=== PATIENT | male | born 1940 | race African-American/Black ===

== ENCOUNTER 2017-05-15 09:38 | Day surgery (SDC) | payer OTHER ==
[2017-05-15 10:00] VITALS: BMI 28.3
[2017-05-15] MEDS ORDERED: ONDANSETRON 4 MG/2 ML VIAL IVPUSH PRN (10:03)
[2017-05-15] MEDS ORDERED: oxyCODONE HCL 5 MG TABLET PO PRN (10:03)
[2017-05-15] MEDS ORDERED: LACTATED RINGERS SOLUTION 1,000 ML IV SCH (10:15)
[2017-05-15] MEDS ORDERED: ACETAMINOPHEN 1000 MG/100 ML VIAL (NON FORMULARY) IVPB ONE (10:21)
[2017-05-15] MEDS ORDERED: ACETAMINOPHEN INJECTION 100 ML IVPB ONE ×2 (10:39→14:03)
[2017-05-15] MEDS ORDERED: BUPIVACAINE HCL/PF 0.5% (5MG/ML) 10 ML VIAL ONE ×2 (10:49→11:40)
[2017-05-15] MEDS ORDERED: MIDAZOLAM HCL 2 MG/2 ML SINGLE DOSE VIAL ONE ×2 (10:50)
--- NOTE | 2017-05-15 10:56 | HP ---
History & Physical Update - History History: No Change (Pt's H&P without change from office visit 04/30/17.) - Physical Physical: No Change - Assessment Assessment: No Change (reducible right inguinal hernia) - Plan Plan: No Change (right inguinal hernia repair with mesh)
[2017-05-15] MEDS ORDERED: ROCURONIUM BROMIDE 50 MG/5 ML VIAL ONE (11:26)
[2017-05-15] MEDS ORDERED: PROPOFOL 20 ML ONE (11:26)
[2017-05-15] MEDS ORDERED: DEXAMETHASONE SOD PHOSPHATE 4 MG/1 ML VIAL ONE (11:27)
[2017-05-15] MEDS ORDERED: ceFAZolin SODIUM 1 GM VIAL ONE (11:40)
[2017-05-15] MEDS ORDERED: ceFAZolin SODIUM 1 GM VIAL IVPB ONE (11:40)
[2017-05-15] MEDS ORDERED: BUPIVACAINE HCL/PF 0.5% (5MG/ML) 10 ML VIAL IJ ONE ×2 (12:11→13:15)
[2017-05-15] MEDS ORDERED: ePHEDrine SULFATE 50 MG/1 ML AMPULE ONE (13:00)
[2017-05-15] MEDS ORDERED: NEOSTIGMINE METHYLSULFATE 0.5 MG/ML - 10 ML MDV ONE (13:13)
[2017-05-15] MEDS ORDERED: GLYCOPYRROLATE 0.2 MG/1 ML VIAL ONE (13:13)
--- NOTE | 2017-05-15 13:36 | OP ---
Operative Note - Note: Operative Date: 05/15/17 Pre-Operative Diagnosis: right inguinal hernia Operation: right inguinal hernia repair with mesh Findings: indirect hernia with cord lipoma adherent to sac - removed, ligated, 2x4" flat mesh used with lateral space for cord Implants: 2x4" Bard flat mesh with 3 corners trimmed Post-Operative Diagnosis: Other (right indirect inguinal hernia) Surgeon: Gab Correa [employer] Account Executive: Nat Borges (MS3) Anesthesiologist/MANNEQUIN WIG MAKER: Mendez Rogers (w/Guon) Anesthesia: General, Local (20ml 0.5% marcainel + TAP block by anesthesia preop) Specimens Removed: hernia sac with cord lipoma Estimated Blood Loss (mls): 10 Fluid Volume Replaced (mls): 1,000 (crystalloid) Operative Report Dictated: Yes
[2017-05-15 15:22] VITALS: TEMP 98.6
[2017-05-15 15:47] VITALS: BP 139/86; PULSE 83
--- NOTE | 2017-05-16 12:24 | PATH ---
Surgical Pathology Report Patient Name: RAYMOND LABOY [facility]. Rec. #: [id number] /Age/Gender: 1940 (Age: 76) / M Account: [id number] Location: [facility] SURGICAL Taken: 05/15/2017 Received: 05/15/2017 Reported: 05/16/2017 Physicians: Gab Crorea M.D. Specimen(s) Received HERNIA SAC AND LIPOMA OF CORD Clinical History Right inguinal hernia Final Diagnosis SOFT TISSUE, RIGHT INGUINAL, EXCISION: BENIGN LYMPH NODE, BENIGN ADIPOSE TISSUE CONSISTENT WITH CORD LIPOMA, AND FIBROMEMBRANOUS TISSUE CONSISTENT WITH HERNIA SAC. Electronically Signed Richi Michelle M.D. Gross Description Received in formalin labeled "hernial sac and cord lipoma," is a 5.8 x 5.0 x 1.2 cm aggregate of almonte-pink portions of fibromembranous tissue with attached yellow, lobulated adipose tissue. Sectioning reveals a 0.6 x 0.5 x 0.3 cm possible lymph node. Salmon Gillnet Vessel Operator sections are submitted in 2 cassettes as follows: 1-lymph node; 2-sections of hernia. /05/15/2017 saudi/05/15/2017
--- NOTE | 2017-05-17 11:36 | OP ---
DATE OF OPERATION: 05/15/2017 PREOPERATIVE DIAGNOSIS: Right inguinal hernia. POSTOPERATIVE DIAGNOSIS: Right indirect inguinal hernia. PROCEDURE PERFORMED: Right inguinal hernia repair with mesh. SURGEON: Giuseppe Correa MD BASKETBALL COACH: Eugenie Borges MS3. ANESTHESIA: General endotracheal as well as local, 20 mL of 0.5% Marcaine and a TAP block by Anesthesia done preoperatively. ESTIMATED BLOOD LOSS: 10 mL. FLUIDS: Crystalloid, 1 L. SPECIMEN: Hernia sac with cord lipoma to Pathology. FINDINGS: An indirect hernia with a cord lipoma adherent to the sac, the entirety of which was removed, ligated, and a 2.4-inch flat mesh used for repair with lateral space for the cord. DISPOSITION: Stable and extubated to PACU. INDICATIONS FOR PROCEDURE: Patient is a 76-year-old male with a history of hypertension, diabetes, gout, and BPH, as well as a normative chronic kidney disease, who had been seen in clinic initially in December with complaints of a small right inguinal bulge, which was not generally bothersome, but noticeable. He was sent by his pattern repair person, Dr. Radha Fitzgerald, and in subsequent months followed up with a primary care physician, urologist, his pattern repair person, and had obtained essentially medical optimizations and clearances by all involved parties prior to be returning to clinic in April with his son looking to get his hernia repaired. He did have positive bulge and an impulse at the inguinal canal on physical examination, but it was reducible, and the procedure was discussed with the patient and his son. Risks, benefits, and alternatives of right inguinal hernia repair with mesh were discussed including, but not limited to, bleeding, infection, risk of injury to adjacent structures including the testicular vessels and nerves, the spermatic cord, the risk of testicular ischemia or loss, mesh infection with the potential for need for subsequent removal, hernia recurrence, and pain both postoperative, temporary, and chronic. The patient wishes to proceed with hernia repair, and informed consent had been signed in the office. He is now brought to the OR for his surgical procedure. OPERATIVE TECHNIQUE: The patient was seen in the holding area by Anesthesia, who performed a right TAP block preoperatively to assist with postoperative anesthesia and analgesia. He was then brought to the operating room and laid supine on the operating table. Sequential compression devices were used to bilateral lower extremities, and 1 g of Ancef was given as preoperative antibiotics prophylactic purposes. The hair in the operative field had been clipped in the holding area prior to moving into the room, and his right groin and lower abdomen were prepped and draped in sterile fashion after induction intubation by Anesthesia. An oblique incision beginning at approximately the level of the external inguinal ring near the pubic tubercle was made with the scalpel and carried towards the superior anterior iliac spine, although not all the way. This was deepened into subcutaneous tissues with electrocautery until the external oblique fascia was identified and cleared bluntly off its surface. A self-retaining retractor was placed, and the external oblique fascia was nicked with a scalpel and opened along the direction of its fibers toward and including the external inguinal ring and also for a very short distance superiorly. Clamps were placed on each leaf of the external oblique, and the internal surfaces were also cleared bluntly, revealing the inguinal ligament on the lateral surface and the medial edge of the rectus muscle on the medial surface. Blunt dissection was used to round the cord structures and presumed hernia sac to elevate this off the pubic tubercle until a fingertip could be passed entirely around the structures over the pubic tubercle, and a Kishore drain was placed around these contents. The cremasteric muscles over the contents were then carefully dissected as well as blunt dissection with Debakey forceps were used to begin attempting identification of an indirect hernia sac. There was no significant weakness to the inguinal floor noted. Ultimately, hernia sac intimately associated with a cord lipoma was identified. It was carefully from the cord structures itself using a combination of blunt dissection and electrocautery. At one point, the sac was grasped with a small clamp, and as dissection continued, it became clear that the cord lipoma was again intimately adherent to the hernia sac, and then, was realized that the sac, in fact, had been entered, and I was able to pass a finger down the internal inguinal ring and into the peritoneal cavity. The base of the sac was opened very near to where it went down towards the internal ring. Thus, some very careful and tedious dissection was undertaken to enable me to grasp a leaf of the edge of the hernia sac near to the base, and no actual abdominal content was noted coming up from the peritoneal cavity other than an occasional flash of fat. Thus, a 2-0 Vicryl suture ligature was used to carefully suture ligate the base of the sac, and the sac and cord lipoma above this location were amputated with electrocautery and passed off the table for specimen to Pathology. Once the suture ligature had been completed, the stump of the sac was reduced back towards the peritoneal cavity down the internal ring, and a 2 x 4 inch Bard flap mesh was chosen to reinforce the inguinal floor. Three corners were trimmed off with curved June scissors, and again, the undersides of the external oblique fascia were cleared enough to lay the superior tail entirely underneath the external oblique fascia with the cord elevated with a Hubertus drain, and the medial corner of the mesh was secured to the pubic tubercle with a 2-0 Prolene stitch, and the cord was positioned to exit at the lateral side of the mesh. The medial edge of the mesh was secured up along the inguinal ligament with several more 2-0 Prolene interrupted sutures leaving a space in the lateral side for the cord to come through, which was just large enough to fit the edge of small pinky finger to ensure that it was not too tight on the cord. The medial aspect of the mesh was then secured to the lateral edge of the rectus with additional 2-0 Prolene interrupted sutures, and the tail again was tucked superiorly under the edge of the external oblique fascia. Irrigation of the field was then undertaken with saline solution, which was suctioned clear. There was no active bleeding noted. The external oblique fascia was then closed in running fashion from the superior corner with running 2-0 Vicryl suture down to the level of the cord. Irrigation was undertaken again, and hemostasis was noted to be completed. Then, several interrupted 3-0 Vicryl sutures were used to reapproximate Scarpas fascia over the external oblique fascia, and a single 3-0 Vicryl stitch taken in the subdermal tissue at the mid portion of the incision. The skin was then closed with gurpreet. Local anesthetic was infiltrated into the edges of the entire incision just prior to final skin closure for a total of 20 mL, and a dressing of folded gauze and Tegaderm were placed over the incision. At the conclusion of the procedure, after taking the drapes down, the patients testicles were both pulled down to the scrotum and ensured to be in appropriate position in the scrotal sac. Counts were correct at the end of the procedure. The patient was then awakened and extubated by Anesthesia, moved back to a stretcher and taken to the recovery room in stable condition having tolerated the procedure well. Gab Correa M.D. [id number]
== END 2017-05-15 16:30 | disposition home or self-care (01) ==
LOC: JASU-SURG 09:38
PROVIDERS: ATTEND Surgery
PROC: 0YU50JZ Supplement Right Inguinal Region with Synthetic Substitute, Open Approach (ICD-10-PCS; principal; 2017-05-15 11:00)
DX: K40.90 Unilateral inguinal hernia, without obstruction or gangrene, not specified as recurrent (principal); I12.9 Hypertensive chronic kidney disease with stage 1 through stage 4 chronic kidney disease, or unspecified chronic kidney disease; N40.0 Benign prostatic hyperplasia without lower urinary tract symptoms; E11.22 Type 2 diabetes mellitus with diabetic chronic kidney disease; N18.9 Chronic kidney disease, unspecified; M10.9 Gout, unspecified
CPT/HCPCS: 82962

== ENCOUNTER 2017-06-24 12:52 | Inpatient (IN) | payer OTHER ==
--- NOTE | 2017-06-24 13:37 | PDOC ---
History of Present Illness - General Chief Complaint: Blood Sugar Problem Stated Complaint: HIGN SUGAR Time Seen by Provider: 06/24/17 13:08 History Source: Patient - History of Present Illness Initial Comments: 06/24/17 14:32 76 year old male with a PMH of NIDDM, BPH, HTN, CKD and Gout who presents to the ED following an incidental BS reading > 600. Patient was at previously scheduled lithotripsy today in urology suite when pre-procedure glucose reading of > 600. Patient sent to ED. Patient denies any abdominal pain, blurry vision , nausea/vomiting. Last BM yesterday evening and was normal. Patient denies chest pain, shortness of breath, fevers/chillsm dysuria/hematuria , diarrhea/constipation. NKDA Surgical: denies PMD: Dr. Colbert Past History - Past Medical History Allergies/Adverse Reactions: Allergies Allergy/AdvReac Type Severity Reaction Status Date / Time No Known Allergies Allergy Verified 06/24/17 13:02 Home Medications: Ambulatory Orders Allopurinol [Zyloprim -] 100 mg PO DAILY 05/15/17 Dutasteride 0.5 mg PO DAILY 05/15/17 Nifedipine ER [Procardia XL -] 60 mg PO DAILY 05/15/17 Sitagliptin Phos/Metformin HCl [Janumet 50-500 mg Tablet] 1 each PO BID Cholecalciferol (Vitamin D3) [Vitamin D3] 1,000 unit PO DAILY 06/23/17 COPD: No Diabetes: Yes Disorders: Yes (BPH TURP) HTN: Yes - Suicide/Smoking/Psychosocial Hx Smoking History: Never smoked Have you smoked in the past 12 months: No If you are a former smoker, when did you quit?: ~1974 Information on smoking cessation initiated: No Hx Alcohol Use: No Drug/Substance Use Hx: No Substance Use Type: None Hx Substance Use Treatment: No Review of Systems - Review of Systems Constitutional: No: Chills, Fever HEENTM: No: Recent change in vision Respiratory: No: Cough, Shortness of Breath Cardiac (ROS): No: Chest Pain, Lightheadedness, Palpitations, Syncope ABD/GI: No: Constipated, Diarrhea, Nausea, Vomiting : No: Burning, Dysuria *Physical Exam - Vital Signs Last Vital Signs Temp Pulse Resp BP Pulse Ox 97.9 F 93 H 16 156/95 98 06/24/17 12:59 06/24/17 12:59 06/24/17 12:59 06/24/17 12:59 06/24/17 12:59 - Physical Exam Comments: 06/24/17 17:19 GENERAL: Awake, alert, and fully oriented, in no acute distress HEAD: No signs of trauma EYES: PERRLA, EOMI, sclera anicteric, conjunctiva clear ENT: Auricles normal inspection, hearing grossly normal, nares patent, oropharynx clear without exudates. Moist mucosa NECK: Nontender, no stepoffs, Normal ROM, supple, no lymphadenopathy, JVD, or masses LUNGS: Breath sounds equal, clear to auscultation bilaterally. No wheezes, and no crackles HEART: Regular rate and rhythm, normal S1 and S2, no murmurs, rubs or gallops ABDOMEN: Soft, nontender, normoactive bowel sounds. No guarding, no rebound. No masses EXTREMITIES: Normal range of motion, no edema. No clubbing or cyanosis. No cords, erythema, or tenderness SKIN: Warm, Dry, normal turgor, no rashes or lesions noted. ED Treatment Course - LABORATORY CBC & Chemistry Diagram: 06/24/17 14:17 06/24/17 14:17 Medical Decision Making - Medical Decision Making 06/24/17 14:33 76 year old male presents from urological suite for elevated BS. At presentation Fingerstick BS > 600. VS unremarkable. Will give IV hydration, obtain basic labs. 06/24/17 15:06 K+ 6.4. Will give 5 units insulin + 1 add'l L IV NS 06/24/17 15:15 Cr 2.9 -- (1.6 in 04/2017), patient receiving IV hydration. Trace Serum Acetone ; UA shows 3+ glucose, 2+ blood, trace ketones. VBG unremarkable. Will page patient's PMD for admission. 06/24/17 17:20 Repeat BS pending. Patient admitted to Dr. Colbert inpatient. Will continue to monitor while in ED. *DC/Admit/Observation/Transfer Diagnosis at time of Disposition: Hyperglycemia - Discharge Dispostion Disposition: HOME Condition at time of disposition: Fair Admit: Yes - Referrals - Patient Instructions - Post Discharge Activity
[2017-06-24] MEDS ORDERED: SODIUM CHLORIDE 1,000 ML IV STA ×2 (14:04→15:18)
[2017-06-24 14:25] LABS: VENOUS PC02 50.8 mmHg (38-52); VENOUS PH 7.33 (7.32-7.42); VENOUS PO2 37.4 mmHg (28-48)
[2017-06-24 14:33] LABS: BASO % 0.4 % (0-2.0); EOS % 0.1 % (0-4.5); HEMATOCRIT 43.9 % (35.4-49); HEMOGLOBIN 14.3 GM/dL (11.7-16.9); LYMPH % 19.4 % (8-40); MCH 26.2 pg (25.7-33.7); MCHC 32.6 g/dl (32.0-35.9); MEAN CELL VOLUME 80.4 fl (80-96); MONO % 6.1 % (3.8-10.2); PLATELET COUNT 257 K/MM3 (134-434); RBC 5.46 M/mm3 (4.00-5.60); RDW 13.9 % (11.9-15.9); WHITE BLOOD COUNT 8.1 K/mm3 (4.0-10.0)
[2017-06-24 14:48] LABS: ALBUMIN 4.2 g/dl (3.4-5.0); ALK PHOS 100 U/L (45-117); ANION GAP 10 (8-16); BILIRUBIN,TOTAL 0.4 mg/dL (0.2-1.0); BLOOD UREA NITROGEN 54 mg/dL (7-18); CHLORIDE 99 mmol/L (98-107); CO2 28 mmol/L (21-32); CREATININE 2.9 mg/dL (0.7-1.3); SGPT/ALT 51 U/L (12-78); SODIUM 137 mmol/L (136-145); TOT PROT 8.4 g/dl (6.4-8.2)
[2017-06-24 15:03] LABS: GLUCOSE,RANDOM 856 mg/dL (74-106)
[2017-06-24 15:04] LABS: POTASSIUM 6.4 mmol/L (3.5-5.1); SGOT/AST 27 U/L (15-37)
[2017-06-24] MEDS ORDERED: INSULIN REGULAR HUMAN 100 UNITS/ML *VIAL IVPUSH ONE ×2 (15:06→16:40)
--- NOTE | 2017-06-24 15:17 | PDOC ---
Attending Attestation - Resident Resident Name: KeithSarah - ED Attending Attestation I have performed the following: I have examined & evaluated the patient, The case was reviewed & discussed with the resident, I agree w/resident's findings & plan, Exceptions are as noted - HPI HPI: 06/24/17 15:14 The patient is a 76 year old male with past medical history of NIDDM who presents to the ED for high blood sugar today. The patient was upstairs awaiting his lithotripsy when his blood sugar was noted to be elevated. Pt was subsequently sent to the ED for eval. The patient denies any complaints at this time. Denies any nausea, vomiting, diarrhea, cough, SOB, or urinary symptoms. Does not use insulin at home and does not regularly check sugars. - Physicial Exam PE: 06/24/17 15:16 "GENERAL: Awake, alert, and fully oriented, in no acute distress. HEAD: No signs of trauma EYES: PERRLA, EOMI, sclera anicteric, conjunctiva clear ENT: Auricles normal inspection, hearing grossly normal, nares patent, oropharynx clear without exudates. Moist mucosa NECK: Nontender, no stepoffs, Normal ROM, supple, no lymphadenopathy, JVD, or masses LUNGS: Breath sounds equal, clear to auscultation bilaterally. No wheezes, and no crackles HEART: Regular rate and rhythm, normal S1 and S2, no murmurs, rubs or gallops ABDOMEN: Soft, nontender, normoactive bowel sounds. No guarding, no rebound. No masses EXTREMITIES: Normal range of motion, no edema. No clubbing or cyanosis. No cords, erythema, or tenderness NEUROLOGICAL: Cranial nerves II through XII intact. 5/5 strength and sensation in all extremities, Normal speech, normal gait, normal cerebellar function SKIN: Warm, Dry, normal turgor, no rashes or lesions noted. " - Medical Decision Making 06/24/17 15:16 76 M with hyperglycemia. No symptoms at this time. Low suspicion for DKA/HHS. - Labs, acetone, UA, VBG - IVF - Insulin PRN
[2017-06-24 15:18] LABS: ACETONE SERUM TRACE (NEGATIVE)
[2017-06-24] MEDS ORDERED: INSULIN (NOVOLOG) ASPART 100 UNITS/ML 10ML VIAL ONE ×2 (15:19→16:41)
[2017-06-24 15:53] LABS: URINE APPEARANCE CLEAR; URINE BILIRUBIN NEGATIVE (<2.0 mg/dL); URINE COLOR STRAW; URINE GLUCOSE (UA) 3+ (NEGATIVE); URINE KETONE TRACE (NEGATIVE); URINE LEUK ESTERASE NEGATIVE (NEGATIVE); URINE NITRITE NEGATIVE (NEGATIVE); URINE PROTEIN NEGATIVE (NEGATIVE); URINE UROBILINOGEN NEGATIVE mg/dL (0.2-1.0)
[2017-06-24 16:24] LABS: URINE BACTERIA RARE /hpf (NONE SEEN); URINE MUCUS RARE
[2017-06-24] MEDS ORDERED: INSULIN (NOVOLOG) ASPART 100 UNITS/ML 10ML VIAL SQ ONE (17:40)
[2017-06-24 18:36] VITALS: BMI 24.6
--- NOTE | 2017-06-24 18:51 | CONSULT ---
Consult Consult Specialty:: Endocrinology Referred by:: Dr Alayna Fitzgerald Reason for Consultation:: Hyperglycemia - History of Present Illness Chief Complaint: Hyperglycemia History of Present Illness: This is a 76 year old man with h/o T2DM for many years, BPH, HTN, CKD and Gout who presents to the ED following an incidental BS reading > 600. Patient was at previously scheduled lithotripsy today in urology suite when pre-procedure glucose reading of > 600. Patient sent to ED. Patient denies any abdominal pain, blurry vision, nausea/vomiting. Last BM yesterday evening and was normal. Blood sugar in the ED was >800. Pt treated with Insulin and IV hydration. Currently FS 570. Says his usual wt is around 154, by that he seems to have lost around 10lbs. Has polyuria, nocturia 3 to 4 times during the night. No visual symptoms. No paresthesia of feet. No family h/o DM. Patient denies chest pain, shortness of breath, fevers/chillsm dysuria/hematuria, diarrhea/constipation. - History Source History Provided By: Patient, Medical Record Limitations to Obtaining History: Poor Historian - Past Medical History Endocrine: Yes: Diabetes Mellitus - Alcohol/Substance Use Hx Alcohol Use: Yes (OCCASSIONALLY) - Smoking History Smoking history: Former smoker Have you smoked in the past 12 months: No If you are a former smoker, when did you quit?: ~1974 Home Medications - Allergies Allergies/Adverse Reactions: Allergies Allergy/AdvReac Type Severity Reaction Status Date / Time No Known Allergies Allergy Verified 06/24/17 13:02 - Home Medications Home Medications: Ambulatory Orders Allopurinol [Zyloprim -] 100 mg PO DAILY 05/15/17 Dutasteride 0.5 mg PO DAILY 05/15/17 Nifedipine ER [Procardia XL -] 60 mg PO DAILY 05/15/17 Sitagliptin Phos/Metformin HCl [Janumet 50-500 mg Tablet] 1 each PO BID Cholecalciferol (Vitamin D3) [Vitamin D3] 1,000 unit PO DAILY 06/23/17 Family Disease History - Family Disease History Other Family History: No family h/o DM Review of Systems - Review of Systems Constitutional: reports: No Symptoms Eyes: reports: No Symptoms HENT: reports: No Symptoms Neck: reports: No Symptoms Cardiovascular: reports: No Symptoms Respiratory: reports: No Symptoms Gastrointestinal: reports: No Symptoms Genitourinary: reports: Other (Polyuria, nocturia) Neurological: reports: No Symptoms Endocrine: reports: Unexplained Weight Loss, Other (Polyuria, nocturia) Physical Exam Vital Signs: Vital Signs Temperature 98 F 06/24/17 18:29 Pulse Rate 115 H 06/24/17 18:29 Respiratory Rate 18 06/24/17 18:29 Blood Pressure 144/97 06/24/17 18:29 O2 Sat by Pulse Oximetry (%) 100 06/24/17 16:34 Constitutional: Yes: No Distress, Calm Eyes: Yes: Conjunctiva Clear, EOM Intact HENT: Yes: Atraumatic, Normocephalic Neck: Yes: Supple, Trachea Midline Cardiovascular: Yes: Regular Rate and Rhythm Respiratory: Yes: Regular, CTA Bilaterally Gastrointestinal: Yes: Normal Bowel Sounds, Soft Musculoskeletal: Yes: WNL Extremities: Yes: WNL Edema: No Neurological: Yes: Alert, Oriented Labs: CBC, BMP 06/24/17 14:17 06/24/17 14:17 Assessment/Plan AP; HHS Uncontrolled DM: Renal Insufficiency ? hyerkalemia Calculated S OSM 341 IV hydration Electrolyte replacement as necessary Start Levemir 18 units BGM Q 4 hrs Novolog SS covrage Q 4 hrs Hold Janumet for now Consider Nephrology consult Rpt CMP now
[2017-06-24] MEDS: SODIUM CHLORIDE 1,000 ML IV SCH (19:01)
[2017-06-24] MEDS ORDERED: DEXTROSE 5%-0.45% SALINE 1,000 ML IV SCH (19:15)
[2017-06-24] MEDS ORDERED: INSULIN SLIDING SCALE (NOVOLOG) 1 VIAL SQ SCH ×3 (19:15→22:00)
[2017-06-24 20:14] LABS: ALBUMIN 3.4 g/dl (3.4-5.0); ALK PHOS 84 U/L (45-117); ANION GAP 6 (8-16); BILIRUBIN,TOTAL 0.3 mg/dL (0.2-1.0); BLOOD UREA NITROGEN 45 mg/dL (7-18); CALCIUM 8.5 mg/dL (8.5-10.1); CHLORIDE 104 mmol/L (98-107); CO2 29 mmol/L (21-32); CREATININE 2.5 mg/dL (0.7-1.3); MAGNESIUM 2.7 mg/dL (1.8-2.4); POTASSIUM 4.8 mmol/L (3.5-5.1); SGOT/AST 15 U/L (15-37); SGPT/ALT 40 U/L (12-78); SODIUM 139 mmol/L (136-145); TOT PROT 6.7 g/dl (6.4-8.2)
[2017-06-24 20:16] LABS: GLUCOSE,RANDOM 584 mg/dL (74-106)
[2017-06-24] MEDS: HEPARIN NA (PORCINE) 5,000 UNITS/ML 1ML VIAL SQ SCH (21:49)
[2017-06-24] MEDS ORDERED: INSULIN (LEVEMIR) 100 UNITS/ML UNITS SQ SCH ×2 (22:00)
[2017-06-24] MEDS: INSULIN SLIDING SCALE (NOVOLOG) 1 VIAL SQ SCH (23:07)
[2017-06-25] MEDS: INSULIN SLIDING SCALE (NOVOLOG) 1 VIAL SQ SCH ×6 (01:56→21:58)
[2017-06-25] MEDS: SODIUM CHLORIDE 1,000 ML IV SCH (03:00)
[2017-06-25 08:02] LABS: HEMATOCRIT 38.9 % (35.4-49); HEMOGLOBIN 12.7 GM/dL (11.7-16.9); MCHC 32.7 g/dl (32.0-35.9); MEAN CELL VOLUME 79.4 fl (80-96); MEAN PLT VOLUME 8.5 fl (7.5-11.1); PLATELET COUNT 211 K/MM3 (134-434); RBC 4.89 M/mm3 (4.00-5.60); RDW 13.3 % (11.9-15.9); WHITE BLOOD COUNT 6.9 K/mm3 (4.0-10.0)
[2017-06-25 08:31] LABS: CALCIUM 8.7 mg/dL (8.5-10.1); CHLORIDE 112 mmol/L (98-107); POTASSIUM 4.7 mmol/L (3.5-5.1); SODIUM 146 mmol/L (136-145)
[2017-06-25 08:37] LABS: ALBUMIN 3.2 g/dl (3.4-5.0); ALK PHOS 80 U/L (45-117); ANION GAP 4 (8-16); BILIRUBIN,TOTAL 0.4 mg/dL (0.2-1.0); BLOOD UREA NITROGEN 35 mg/dL (7-18); CO2 30 mmol/L (21-32); CREATININE 1.8 mg/dL (0.7-1.3); GLUCOSE,RANDOM 156 mg/dL (74-106); SGOT/AST 22 U/L (15-37); SGPT/ALT 39 U/L (12-78); TOT PROT 6.6 g/dl (6.4-8.2)
[2017-06-25] MEDS ORDERED: PT OWN MED DRAWER 7, Y5N ONE (10:29)
[2017-06-25] MEDS ORDERED: INSULIN (NOVOLOG) ASPART 100 UNITS/ML 10ML VIAL ONE ×2 (10:30→20:35)
[2017-06-25] MEDS: HEPARIN NA (PORCINE) 5,000 UNITS/ML 1ML VIAL SQ SCH ×2 (10:34→21:50)
[2017-06-25] MEDS: NIFEdipine E.R 60 MG TABLET (UD) PO SCH (10:34)
[2017-06-25] MEDS: DUTASTERIDE 0.5 MG CAP (FP) PO SCH (10:36)
--- NOTE | 2017-06-25 11:44 | EKG ---
Test Reason : Blood Pressure : / mmHG Vent. Rate : 083 BPM Atrial Rate : 083 BPM P-R Int : 118 ms QRS Dur : 082 ms QT Int : 344 ms P-R-T Axes : 044 005 052 degrees QTc Int : 404 ms NORMAL SINUS RHYTHM BIATRIAL ENLARGEMENT ABNORMAL ECG WHEN COMPARED WITH ECG OF 09-JUN-2005 16:33, NO SIGNIFICANT CHANGE WAS FOUND Confirmed by DAMON AMADOR MD ([id number]) on 06/25/2017 11:44:02 AM Referred By: Confirmed By:DAMON AMADOR MD
--- NOTE | 2017-06-25 11:59 | HP ---
Admitting History and Physical - Primary Care Physician PCP: Newton Olea - Admission Chief Complaint: uncontrolled DM History of Present Illness: 76 yrs old male sent from Urology suite for elevated blood sugars. He was scheduled for lithotripsy yesterday and found to have BGM >600 pt on iv fluids sugars better no distress feels well no pain no increased urination or thirst History Source: Patient Limitations to Obtaining History: No Limitations - Past Medical History Cardiovascular: Yes: HTN Endocrine: Yes: Diabetes Mellitus - Smoking History Smoking history: Former smoker Have you smoked in the past 12 months: No If you are a former smoker, when did you quit?: ~1974 - Alcohol/Substance Use Hx Alcohol Use: Yes (OCCASSIONALLY) Home Medications - Allergies Allergies/Adverse Reactions: Allergies Allergy/AdvReac Type Severity Reaction Status Date / Time No Known Allergies Allergy Verified 06/24/17 13:02 - Home Medications Home Medications: Ambulatory Orders Allopurinol [Zyloprim -] 100 mg PO DAILY 05/15/17 Dutasteride 0.5 mg PO DAILY 05/15/17 Nifedipine ER [Procardia XL -] 60 mg PO DAILY 05/15/17 Sitagliptin Phos/Metformin HCl [Janumet 50-500 mg Tablet] 1 each PO BID Cholecalciferol (Vitamin D3) [Vitamin D3] 1,000 unit PO DAILY 06/23/17 Family Disease History - Family Disease History Other Family History: No family h/o DM Review of Systems - Review of Systems Constitutional: denies: Chills, Fever Physical Examination Vital Signs: Vital Signs Temperature 97.7 F 06/25/17 10:00 Pulse Rate 88 06/25/17 10:00 Respiratory Rate 19 06/25/17 10:00 Blood Pressure 142/77 06/25/17 10:00 O2 Sat by Pulse Oximetry (%) 100 06/24/17 18:52 Constitutional: Yes: No Distress, Calm Cardiovascular: Yes: Regular Rate and Rhythm Respiratory: Yes: CTA Bilaterally Gastrointestinal: Yes: Normal Bowel Sounds, Soft. No: Distention, Tenderness Renal/: No: CVA Tenderness - Left, CVA Tenderness - Right Edema: No Labs: CBC, BMP 06/25/17 07:52 06/25/17 07:52 Imaging - Results EKG: Image Reviewed (NSR) Problem List - Problems (1) Hyperosmolar syndrome Code(s): E87.0 - HYPEROSMOLALITY AND HYPERNATREMIA (2) HTN (hypertension) Code(s): I10 - ESSENTIAL (PRIMARY) HYPERTENSION (3) Hyperglycemia Code(s): R73.9 - HYPERGLYCEMIA, UNSPECIFIED (4) Acute renal failure Code(s): N17.9 - ACUTE KIDNEY FAILURE, UNSPECIFIED (5) Hyperkalemia Code(s): E87.5 - HYPERKALEMIA Assessment/Plan PLAN iv fluids On Levemir Endocrinology eval appreciated potassium better renal function improving check HBA1C OOB pt can reschedule lithotripsy outpt-- not in acute pain continue with meds DVT prophylaxis-- heparin sc
--- NOTE | 2017-06-25 14:21 | PN ---
Progress Note (short form) - Note Progress Note: Denies any complaints Blood sugar improving No Hypos Vital Signs Period Temp Pulse Resp BP Sys/Thakkar Pulse Ox Last 24 Hr 97.7 F-98.1 F 72-115 18-20 120-146/60-97 100-100 PE; AOx3 Neck: Supple, No JVD HEENT; PERRL, EOMI Lungs: CTA CVS: S1S2 Abd: Benign Ext: No edema Neuro: No focal deficit CMP Sodium 146 mmol/L (136-145) H 06/25/17 07:52 Potassium 4.7 mmol/L (3.5-5.1) 06/25/17 07:52 Chloride 112 mmol/L (98-107) H 06/25/17 07:52 Carbon Dioxide 30 mmol/L (21-32) 06/25/17 07:52 Anion Gap 4 (8-16) L 06/25/17 07:52 BUN 35 mg/dL (7-18) H D 06/25/17 07:52 Creatinine 1.8 mg/dL (0.7-1.3) H D 06/25/17 07:52 Creat Clearance w eGFR 36.77 (>60) 06/25/17 07:52 POC Glucometer 327 UNITS (80-120) 06/25/17 10:26 Random Glucose 156 mg/dL (74-106) H D 06/25/17 07:52 Calcium 8.7 mg/dL (8.5-10.1) 06/25/17 07:52 Magnesium 2.7 mg/dL (1.8-2.4) H 06/24/17 18:50 Total Bilirubin 0.4 mg/dL (0.2-1.0) D 06/25/17 07:52 AST 22 U/L (15-37) D 06/25/17 07:52 ALT 39 U/L (12-78) 06/25/17 07:52 Alkaline Phosphatase 80 U/L (45-117) 06/25/17 07:52 Total Protein 6.6 g/dl (6.4-8.2) 06/25/17 07:52 Albumin 3.2 g/dl (3.4-5.0) L 06/25/17 07:52 Current Medications Generic Name Dose Route Start Last Admin Trade Name Freq PRN Reason Stop Dose Admin Dutasteride 0.5 mg 06/25/17 10:00 06/25/17 10:36 Avodart - PO 0.5 mg DAILY MACKENZIE Administration Heparin Sodium (Porcine) 5,000 unit 06/24/17 22:00 06/25/17 10:34 Heparin - SQ 5,000 unit BID MACKENZIE Administration Sodium Chloride 1,000 mls @ 125 mls/hr 06/24/17 18:00 06/25/17 03:00 Normal Saline - IV 125 mls/hr ASDIR MACKENZIE Administration Dextrose/Sodium Chloride 1,000 mls @ 125 mls/hr 06/24/17 19:15 06/24/17 19:48 D5-1/2ns - IV Not Given ASDIR MACKENZIE Insulin Aspart 1 vial 06/24/17 22:00 06/25/17 10:35 Novolog Vial Sliding Scale - SQ 8 units Q4H MACKENZIE Administration Protocol Insulin Detemir 18 units 06/24/17 22:00 06/24/17 21:50 Levemir Vial SQ 18 units HS MACKENZIE Administration Nifedipine 60 mg 06/25/17 10:00 06/25/17 10:34 Procardia Xl - PO 60 mg DAILY MACKENZIE Administration AP; HHS Uncontrolled DM: Renal Insufficiency ? hyerkalemia Calculated S OSM 341 IV hydration Electrolyte replacement as necessary Increase Levemir 22 units at HS daily BGM Q ACHS Novolog LASHANDA NEVAREZ Hold Janumet for now Rpt CMP , mag, phos in a.m. Will f/u
[2017-06-25] MEDS: SODIUM CHLORIDE 0.45% 1,000 ML IV SCH (15:00)
[2017-06-25] MEDS ORDERED: INSULIN (NOVOLOG) ASPART 100 UNITS/ML 10ML VIAL SQ ONE ×2 (15:45→18:00)
[2017-06-25] MEDS ORDERED: INSULIN (LEVEMIR) 100 UNITS/ML UNITS SQ SCH ×2 (22:00)
[2017-06-26] MEDS: SODIUM CHLORIDE 0.45% 1,000 ML IV SCH ×2 (04:00→21:23)
[2017-06-26] MEDS: INSULIN SLIDING SCALE (NOVOLOG) 1 VIAL SQ SCH ×4 (06:06→21:23)
[2017-06-26 08:23] LABS: ANION GAP 6 (8-16); BLOOD UREA NITROGEN 28 mg/dL (7-18); CALCIUM 8.2 mg/dL (8.5-10.1); CHLORIDE 106 mmol/L (98-107); CO2 28 mmol/L (21-32); GLUCOSE,RANDOM 150 mg/dL (74-106); POTASSIUM 3.6 mmol/L (3.5-5.1); SODIUM 140 mmol/L (136-145)
[2017-06-26 08:25] LABS: CREATININE 1.5 mg/dL (0.7-1.3)
[2017-06-26] MEDS ORDERED: PT OWN MED DRAWER 7, Y5N ONE (10:07)
[2017-06-26] MEDS: NIFEdipine E.R 60 MG TABLET (UD) PO SCH (10:13)
[2017-06-26] MEDS: HEPARIN NA (PORCINE) 5,000 UNITS/ML 1ML VIAL SQ SCH ×2 (10:13→21:17)
[2017-06-26] MEDS: DUTASTERIDE 0.5 MG CAP (FP) PO SCH (10:14)
--- NOTE | 2017-06-26 11:24 | DS ---
Physical Examination Vital Signs: Vital Signs Temperature 98.5 F 06/26/17 09:00 Pulse Rate 87 06/26/17 10:00 Respiratory Rate 17 06/26/17 10:00 Blood Pressure 145/77 06/26/17 10:00 O2 Sat by Pulse Oximetry (%) 100 06/24/17 18:52 Constitutional: Yes: No Distress, Calm Cardiovascular: Yes: Regular Rate and Rhythm Respiratory: Yes: CTA Bilaterally Gastrointestinal: Yes: Normal Bowel Sounds, Soft. No: Tenderness Edema: No Labs: CBC, BMP 06/25/17 07:52 06/26/17 06:30 Discharge Summary Reason For Visit: HYPERGLYCEMIA Current Active Problems Acute renal failure (Acute) HTN (hypertension) (Acute) Hyperglycemia (Acute) Hyperkalemia (Acute) Hyperosmolar syndrome (Acute) Hospital Course: admitted for elevated blood sugars, hyperosmolar state Seen by Endocrinology started on Insulin sugars are better after insulin and iv fluids pt stable for dc home on insulin-- diabetic teaching provided follow up with Urology as outpt Condition: Fair - Instructions Referrals: Delmar Chavez MD., [Staff Physician] - Mu Hagan MD [Staff Physician] - Disposition: HOME - Home Medications Comprehensive Discharge Medication List: Ambulatory Orders RX: Allopurinol [Zyloprim -] 100 mg PO DAILY 05/15/17 RX: Dutasteride 0.5 mg PO DAILY 05/15/17 RX: Nifedipine ER [Procardia XL -] 60 mg PO DAILY 05/15/17 RX: Cholecalciferol (Vitamin D3) [Vitamin D3] 1,000 unit PO DAILY 06/23/17 Insulin Detemir [Levemir Flextouch] 25 unit SQ HS #10 insuln.pen 06/26/17
--- NOTE | 2017-06-26 13:13 | FALL ---
<Sis Martinez - Last Filed: 06/28/17 15:48> Fall Exam - Event Witnessed fall: No Location of Fall: Bathroom Fall from: While ambulating (pt was in the bathroom with door closed, he had just turned the water on and he felt dizzy and felt himself go down, he protected his head, LOC for few seconds as per nursing, patient recalls event. no abnormal movements, no incontinence.) - Pre-Fall Mental Status: Alert, Oriented, Cooperative Current Medications: Current Medications Generic Name Dose Route Start Last Admin Trade Name Kayy PRN Reason Stop Dose Admin Dutasteride 0.5 mg 06/25/17 10:00 06/26/17 10:14 Avodart - PO 0.5 mg DAILY MACKENZIE Administration Heparin Sodium (Porcine) 5,000 unit 06/24/17 22:00 06/26/17 10:13 Heparin - SQ 5,000 unit BID MACKENZIE Administration Sodium Chloride 1,000 mls @ 75 mls/hr 06/25/17 14:30 06/26/17 04:00 1/2 Normal Saline IV 75 mls/hr ASDIR MACKENZIE Administration Insulin Aspart 1 vial 06/25/17 22:00 06/25/17 21:58 Novolog Vial Sliding Scale - SQ 6 units HS MACKENZIE Administration Protocol Insulin Aspart 1 vial 06/25/17 16:30 06/26/17 11:37 Novolog Vial Sliding Scale - SQ 10 units TIDAC MACKENZIE Administration Protocol Insulin Detemir 25 units 06/25/17 22:00 06/25/17 21:50 Levemir Vial SQ 25 units HS MACKENZIE Administration Nifedipine 60 mg 06/25/17 10:00 06/26/17 10:13 Procardia Xl - PO 60 mg DAILY MACKENZIE Administration - Post-Fall Patient Outcome: No Injury Exam Findings: NAD, NC/AT(no head lacerations, no hematoma), CTAB, tachycardia, no MRG,EOMI, PERRLA, facial symmetry, clear speeh, no neck pain, no LAD, no bruits, 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 Alayna Almaguer(PCP) @ 12:45pm, assumed care, recommend head and neck ct to r/o hemorrhage/fracture to be transported with hard collar, trend troponin, stat EKG, v/q scan to r/o PE as cr 1.5(unable to send for CTA), though low suspicion as pt was on heparin and freely ambulating, unexpected syncope in elderly man with HTN, DM, consult Pulmonary, transfer to Tele. spoke with son @1:00pm, family aware pt's d/c has been cancelled) Vital Signs: Vital Signs 127/64 HR 124, 97% on 6L, initially 87% on RA BGM 365 LOC Post-Fall: Awake, Alert, Oriented Identify factors for HIGH RISK for Head Injury: Pt on anticoagulant <Lacie Puentes - Last Filed: 06/30/17 18:44> Fall Exam - Post-Fall Vital Signs: Vital Signs Temperature 98.4 F 06/28/17 09:00 Pulse Rate 70 06/28/17 09:00 Respiratory Rate 20 06/28/17 09:00 Blood Pressure 163/91 06/28/17 09:00 O2 Sat by Pulse Oximetry (%) 98 06/28/17 09:00 Critical Care Total Critical Care Time (in minutes): 40 Critical Care Statement: The care of this patient involved high complexity decision making to prevent further life threatening deterioration of the patient 's condition and/or to evaluate & treat vital organ system(s) failure or risk of failure.
--- NOTE | 2017-06-26 13:58 | PN ---
Progress Note (short form) - Note Progress Note: Events noted Randolph dizzy and fell in bathroom, BGM was 365 CT Head, c spine done Blood sugar fluctuating No Hypos Vital Signs Period Temp Pulse Resp BP Sys/Thakkar Pulse Ox Last 24 Hr 98 F-98.5 F 79-106 17-18 137-145/77-105 PE; AOx3 Neck: Supple, No JVD, with cervical collar HEENT; PERRL, EOMI Lungs: CTA CVS: S1S2 Abd: Benign Ext: No edema Neuro: No focal deficit CMP Sodium 140 mmol/L (136-145) 06/26/17 06:30 Potassium 3.6 mmol/L (3.5-5.1) D 06/26/17 06:30 Chloride 106 mmol/L (98-107) 06/26/17 06:30 Carbon Dioxide 28 mmol/L (21-32) 06/26/17 06:30 Anion Gap 6 (8-16) L 06/26/17 06:30 BUN 28 mg/dL (7-18) H 06/26/17 06:30 Creatinine 1.5 mg/dL (0.7-1.3) H 06/26/17 06:30 Creat Clearance w eGFR 36.77 (>60) 06/25/17 07:52 POC Glucometer 365 UNITS (80-120) 06/26/17 12:43 Random Glucose 150 mg/dL (74-106) H 06/26/17 06:30 Hemoglobin A1c % 12.7 % (4.8-6.0) H 06/25/17 06:00 Calcium 8.2 mg/dL (8.5-10.1) L 06/26/17 06:30 Magnesium 2.7 mg/dL (1.8-2.4) H 06/24/17 18:50 Total Bilirubin 0.4 mg/dL (0.2-1.0) D 06/25/17 07:52 AST 22 U/L (15-37) D 06/25/17 07:52 ALT 39 U/L (12-78) 06/25/17 07:52 Alkaline Phosphatase 80 U/L (45-117) 06/25/17 07:52 Total Protein 6.6 g/dl (6.4-8.2) 06/25/17 07:52 Albumin 3.2 g/dl (3.4-5.0) L 06/25/17 07:52 Current Medications Generic Name Dose Route Start Last Admin Trade Name Kayy PRN Reason Stop Dose Admin Dutasteride 0.5 mg 06/25/17 10:00 06/26/17 10:14 Avodart - PO 0.5 mg DAILY MACKENZIE Administration Heparin Sodium (Porcine) 5,000 unit 06/24/17 22:00 06/26/17 10:13 Heparin - SQ 5,000 unit BID MACKENZIE Administration Sodium Chloride 1,000 mls @ 75 mls/hr 06/25/17 14:30 06/26/17 04:00 1/2 Normal Saline IV 75 mls/hr ASDIR MACKENZIE Administration Insulin Aspart 1 vial 06/25/17 22:00 06/25/17 21:58 Novolog Vial Sliding Scale - SQ 6 units HS MACKENZIE Administration Protocol Insulin Aspart 1 vial 06/25/17 16:30 06/26/17 11:37 Novolog Vial Sliding Scale - SQ 10 units TIDAC MACKENZIE Administration Protocol Insulin Detemir 25 units 06/25/17 22:00 06/25/17 21:50 Levemir Vial SQ 25 units HS MACKENZIE Administration Nifedipine 60 mg 06/25/17 10:00 06/26/17 10:13 Procardia Xl - PO 60 mg DAILY MACKENZIE Administration AP; Dizziness s/p Fall: pt being transferred to Telemetry [facility] Uncontrolled DM: Renal Insufficiency ? hyerkalemia Calculated S OSM 341 IV hydration Electrolyte replacement as necessary Increase Levemir 28 units at HS daily BGM Q ACHS Increase Novolog SS kanu NEVAREZ Hold Johnt for now Rpt CMP , mag, phos in a.m. Will f/u
--- NOTE | 2017-06-26 14:40 | CON.PULM ---
Consult Consult Specialty:: PULM/CCM Referred by:: MAY Reason for Consultation:: Syncope - History of Present Illness Chief Complaint: elevated blood sugar History of Present Illness: 76 M, NIDDM, BPH, HTN, CKD, and Gout. Admitted via the ER due to incidental hyperglycemia with readings > 600 that was checked prior to a scheduled lithotripsy. Patient turned the water on in the shower and due to the coldness he felt shocked and then became dizzy and fell backwards. He says that he recalls the fall and tried to protected the back of his head by placing both of his hands on the back. Currently he is fully awake and alert. Although he is on supplemental O2, he was previously saturating 100% on RA. He denies CP or SOB. He does not have cough or hemoptysis. He does not have any lower extremity cramping or symptoms. During his short hospitalization, he has been up ad [place] and has been on SQ Heparin. His Wells Criteria Score is -2. - History Source History Provided By: Patient Limitations to Obtaining History: No Limitations - Past Medical History Cardio/Vascular: Yes: HTN Endocrine: Yes: Diabetes Mellitus - Alcohol/Substance Use Hx Alcohol Use: Yes (OCCASSIONALLY) - Smoking History Smoking history: Former smoker Have you smoked in the past 12 months: No If you are a former smoker, when did you quit?: ~1974 Home Medications - Allergies Allergies/Adverse Reactions: Allergies Allergy/AdvReac Type Severity Reaction Status Date / Time No Known Allergies Allergy Verified 06/24/17 13:02 - Home Medications Home Medications: Ambulatory Orders Allopurinol [Zyloprim -] 100 mg PO DAILY 05/15/17 Dutasteride 0.5 mg PO DAILY 05/15/17 Nifedipine ER [Procardia XL -] 60 mg PO DAILY 05/15/17 Cholecalciferol (Vitamin D3) [Vitamin D3] 1,000 unit PO DAILY 06/23/17 Insulin Detemir [Levemir Flextouch] 25 unit SQ HS #10 insuln.pen 06/26/17 Pen Needle, Diabetic [Pen Needle] 1 each SQ DAILY #90 dis.needle 06/26/17 Family Disease History - Family Disease History Other Family History: No family h/o DM Review of Systems - Review of Systems Constitutional: reports: No Symptoms. denies: Chills, Fever, Malaise, Night Sweats, Unintentional Wgt. Loss, Weakness Eyes: reports: No Symptoms HENT: reports: No Symptoms Neck: reports: No Symptoms Cardiovascular: reports: No Symptoms. denies: Chest Pain, Edema, Palpitations, Shortness of Breath Respiratory: reports: No Symptoms. denies: Cough, Hemoptysis, Snoring, SOB, SOB on Exertion, Wheezing Gastrointestinal: reports: No Symptoms Genitourinary: reports: No Symptoms Breasts: reports: No Symptoms Reported Musculoskeletal: reports: Back Pain, Muscle Cramps Integumentary: reports: No Symptoms Neurological: reports: Dizziness, Syncope. denies: Change in Speech, Confusion , Headache, Numbness, Parasthesia, Pre-Existing Deficit, Seizure, Tremors, Weakness Endocrine: reports: No Symptoms Hematology/Lymphatic: reports: No Symptoms Psychiatric: reports: No Symptoms Physical Exam Vital Sings: Vital Signs Temperature 97.9 F 06/26/17 13:27 Pulse Rate 115 H 06/26/17 13:27 Respiratory Rate 20 06/26/17 13:27 Blood Pressure 137/93 06/26/17 13:27 O2 Sat by Pulse Oximetry (%) 100 06/24/17 18:52 Constitutional: Yes: No Distress, Calm Eyes: Yes: Conjunctiva Clear, EOM Intact HENT: Yes: Atraumatic, Normocephalic Neck: Yes: Supple, Trachea Midline Cardiovascular: Yes: Regular Rate and Rhythm Respiratory: Yes: Regular, CTA Bilaterally. No: Accessory Muscle Use, Cough, Rales, Rhonchi, SOB, Stridor, Tachypnea, Wheezes ...Inspection: Yes: WNL ...Clubbing: No Gastrointestinal: Yes: Normal Bowel Sounds, Soft Renal/: Yes: WNL Breast(s): Yes: WNL Musculoskeletal: Yes: WNL Extremities: Yes: WNL Edema: No Peripheral Pulses WNL: Yes Integumentary: Yes: WNL Neurological: Yes: WNL, Alert, Oriented ...Motor Strength: WNL Psychiatric: Yes: WNL, Alert, Oriented Labs: CBC, BMP 06/25/17 07:52 06/26/17 06:30 Problem List - Problems (1) Syncope Code(s): R55 - SYNCOPE AND COLLAPSE (2) HTN (hypertension) Code(s): I10 - ESSENTIAL (PRIMARY) HYPERTENSION (3) Hyperglycemia Code(s): R73.9 - HYPERGLYCEMIA, UNSPECIFIED Assessment/Plan Do not clinically suspect VTE: His Wells Criteria Score is -2. Continue SQ Heparin BID for VTE prophylaxis Fall precautions O2 as needed Incentive Spirometry Noted he will be placed on Cardiac Telemetry monitoring Will follow Thank you. Dr Salamanca
--- NOTE | 2017-06-26 14:50 | EKG ---
Test Reason : Blood Pressure : / mmHG Vent. Rate : 121 BPM Atrial Rate : 121 BPM P-R Int : 114 ms QRS Dur : 120 ms QT Int : 330 ms P-R-T Axes : 048 045 -04 degrees QTc Int : 468 ms SINUS TACHYCARDIA POSSIBLE LEFT ATRIAL ENLARGEMENT RIGHT BUNDLE BRANCH BLOCK POSSIBLE INFERIOR INFARCT , AGE UNDETERMINED ABNORMAL ECG WHEN COMPARED WITH ECG OF 24-JUN-2017 13:02, RIGHT BUNDLE BRANCH BLOCK IS NOW PRESENT BORDERLINE CRITERIA FOR INFERIOR INFARCT ARE NOW PRESENT Confirmed by MARYA NIÑO MD ([id number]) on 06/26/2017 2:49:58 PM Referred By: Confirmed By:MARYA NIÑO MD
[2017-06-26] MEDS ORDERED: METOPROLOL TARTRATE 25 MG TABLET (FP) PO ONE (17:30)
[2017-06-26] MEDS: ASPIRIN 81 MG CHEWABLE TABLETS PO SCH (17:40)
--- NOTE | 2017-06-26 19:34 | PN ---
Progress Note (short form) - Note Progress Note: was informed by nurse that pt had syncopized in the bathroom I immediately came to see the pt-- spoke to hospitalist and residents Pt awake, alert- still lying on the bathroom floor remembers the incident-- he felt dizzy when he came to the shower, did not turn on the water yet. He usually ambulates in the room without any issues. No c/o chest pain Palpitations+ Vitals noted S1 S2 RRR- tachycardic Lungs clear A/P Syncope -- BGM in the 300's -- BP stable but tachycardic -- agree with CT head and c- spine -- telemetry -- Check cardiac enzymes -- low suspicion for PE Problem List - Problems (1) Hyperosmolar syndrome Code(s): E87.0 - HYPEROSMOLALITY AND HYPERNATREMIA (2) HTN (hypertension) Code(s): I10 - ESSENTIAL (PRIMARY) HYPERTENSION (3) Hyperglycemia Code(s): R73.9 - HYPERGLYCEMIA, UNSPECIFIED (4) Acute renal failure Code(s): N17.9 - ACUTE KIDNEY FAILURE, UNSPECIFIED (5) Hyperkalemia Code(s): E87.5 - HYPERKALEMIA
[2017-06-26] MEDS ORDERED: METOPROLOL TARTRATE 5 MG/5 ML VIAL IVPUSH PRN (19:35)
[2017-06-26] MEDS ORDERED: INSULIN (NOVOLOG) ASPART 100 UNITS/ML 10ML VIAL ONE (21:09)
[2017-06-26] MEDS: METOPROLOL TARTRATE 25 MG TABLET (FP) PO SCH (21:59)
[2017-06-26] MEDS ORDERED: INSULIN (LEVEMIR) 100 UNITS/ML UNITS SQ SCH (22:00)
[2017-06-27] MEDS: INSULIN SLIDING SCALE (NOVOLOG) 1 VIAL SQ SCH ×4 (06:28→22:25)
[2017-06-27 07:08] LABS: CHLORIDE 106 mmol/L (98-107); POTASSIUM 3.9 mmol/L (3.5-5.1); SODIUM 140 mmol/L (136-145)
[2017-06-27 07:16] LABS: ALBUMIN 2.9 g/dl (3.4-5.0); ALK PHOS 70 U/L (45-117); ANION GAP 7 (8-16); BILIRUBIN,TOTAL 0.3 mg/dL (0.2-1.0); BLOOD UREA NITROGEN 29 mg/dL (7-18); CALCIUM 8.3 mg/dL (8.5-10.1); CO2 27 mmol/L (21-32); CREATININE 1.7 mg/dL (0.7-1.3); GLUCOSE,RANDOM 159 mg/dL (74-106); MAGNESIUM 1.9 mg/dL (1.8-2.4); PHOSPHOROUS 2.9 mg/dL (2.5-4.9); SGOT/AST 23 U/L (15-37); SGPT/ALT 39 U/L (12-78); TOT PROT 6.1 g/dl (6.4-8.2)
[2017-06-27] MEDS: METOPROLOL TARTRATE 25 MG TABLET (FP) PO SCH ×2 (09:00→23:00)
[2017-06-27] MEDS: HEPARIN NA (PORCINE) 5,000 UNITS/ML 1ML VIAL SQ SCH ×2 (09:00→23:00)
[2017-06-27] MEDS: DUTASTERIDE 0.5 MG CAP (FP) PO SCH (09:00)
[2017-06-27] MEDS: ASPIRIN 81 MG CHEWABLE TABLETS PO SCH (09:00)
[2017-06-27] MEDS: NIFEdipine E.R 60 MG TABLET (UD) PO SCH (09:00)
--- NOTE | 2017-06-27 09:51 | PN ---
Progress Note, Physician Chief Complaint: tele - sinus tachycardia no distress - Current Medication List Current Medications: Active Medications Aspirin (Asa -) 81 mg PO DAILY [facility] Last Admin: 06/27/17 09:00 Dose: 81 mg Dutasteride (Avodart -) 0.5 mg PO DAILY [facility] Last Admin: 06/27/17 09:00 Dose: 0.5 mg Heparin Sodium (Porcine) (Heparin -) 5,000 unit SQ BID [facility] Last Admin: 06/27/17 09:00 Dose: 5,000 unit Sodium Chloride (1/2 Normal Saline) 1,000 mls @ 75 mls/hr IV ASDIR [facility] Last Admin: 06/26/17 21:23 Dose: 75 mls/hr Insulin Aspart (Novolog Vial Sliding Scale -) 1 vial SQ HS [facility] PRN Reason: Protocol Last Admin: 06/26/17 21:23 Dose: 6 units Insulin Aspart (Novolog Vial Sliding Scale -) 1 vial SQ TIDAC [facility] PRN Reason: Protocol Last Admin: 06/27/17 06:28 Dose: 6 units Insulin Detemir (Levemir Vial) 28 units SQ HS [facility] Last Admin: 06/26/17 21:23 Dose: 28 units Metoprolol Tartrate (Lopressor -) 25 mg PO BID [facility] Last Admin: 06/27/17 09:00 Dose: 25 mg Metoprolol Tartrate (Lopressor Injection -) 5 mg IVPUSH Q4H PRN PRN Reason: HYPERTENSION Nifedipine (Procardia Xl -) 60 mg PO DAILY [facility] Last Admin: 06/27/17 09:00 Dose: 60 mg - Objective Vital Signs: Vital Signs Temperature 98.3 F 06/27/17 03:27 Pulse Rate 78 06/27/17 03:27 Respiratory Rate 19 06/27/17 03:27 Blood Pressure 136/89 06/27/17 03:27 O2 Sat by Pulse Oximetry (%) 98 06/26/17 21:00 Constitutional: Yes: No Distress, Calm Cardiovascular: Yes: Regular Rate and Rhythm, Tachycardia Respiratory: Yes: CTA Bilaterally Gastrointestinal: Yes: Normal Bowel Sounds, Soft. No: Tenderness Edema: No Labs: CBC, BMP 06/25/17 07:52 06/27/17 06:25 Problem List - Problems (1) Hyperosmolar syndrome Code(s): E87.0 - HYPEROSMOLALITY AND HYPERNATREMIA (2) HTN (hypertension) Code(s): I10 - ESSENTIAL (PRIMARY) HYPERTENSION Qualifiers: Hypertension type: essential hypertension Qualified Code(s): I10 - Essential (primary) hypertension (3) Hyperglycemia Code(s): R73.9 - HYPERGLYCEMIA, UNSPECIFIED (4) Acute renal failure Code(s): N17.9 - ACUTE KIDNEY FAILURE, UNSPECIFIED (5) Hyperkalemia Code(s): E87.5 - HYPERKALEMIA Assessment/Plan PLAN iv fluids- increase On Levemir renal function improving HBA1C-- 12.7 OOB pt can reschedule lithotripsy outpt-- not in acute pain continue with meds DVT prophylaxis-- heparin sc Troponins flat , no elevated CK-MB spoke with Cardiology-- stress test as outpt
--- NOTE | 2017-06-27 10:02 | CON.CARD ---
Consult Consult Specialty:: Cardiology Referred by:: Alayna Almaguer MD Reason for Consultation:: Syncope - History of Present Illness Chief Complaint: Syncope History of Present Illness: 76 M, NIDDM, BPH, HTN, CKD, and Gout admitted via the ER due to incidental hyperglycemia with readings > 600 that was checked prior to a scheduled lithotripsy. Patient turned the water on in the shower and due to the coldness he felt shocked and then became dizzy and fell backwards. He says that he recalls the fall and tried to protected the back of his head by placing both of his hands on the back. Currently he is fully awake and alert, reports polyuria. Although he is on supplemental O2, he was previously saturating 100% on RA. He denies CP or SOB, palpitations, orthopnea, PND or LE edema. - History Source History Provided By: Patient Limitations to Obtaining History: No Limitations - Past Medical History Cardio/Vascular: Yes: HTN Endocrine: Yes: Diabetes Mellitus - Alcohol/Substance Use Hx Alcohol Use: Yes (OCCASSIONALLY) - Smoking History Smoking history: Former smoker Have you smoked in the past 12 months: No If you are a former smoker, when did you quit?: ~1974 Home Medications - Allergies Allergies/Adverse Reactions: Allergies Allergy/AdvReac Type Severity Reaction Status Date / Time No Known Allergies Allergy Verified 06/24/17 13:02 - Home Medications Home Medications: Ambulatory Orders Allopurinol [Zyloprim -] 100 mg PO DAILY 05/15/17 Dutasteride 0.5 mg PO DAILY 05/15/17 Nifedipine ER [Procardia XL -] 60 mg PO DAILY 05/15/17 Cholecalciferol (Vitamin D3) [Vitamin D3] 1,000 unit PO DAILY 06/23/17 Insulin Detemir [Levemir Flextouch] 25 unit SQ HS #10 insuln.pen 06/26/17 Pen Needle, Diabetic [Pen Needle] 1 each SQ DAILY #90 dis.needle 06/26/17 Family Disease History - Family Disease History Other Family History: No family h/o DM Review of Systems - Review of Systems Neurological: reports: Syncope Vital Signs: Vital Signs Temperature 98.3 F 06/27/17 03:27 Pulse Rate 78 06/27/17 03:27 Respiratory Rate 19 06/27/17 03:27 Blood Pressure 136/89 06/27/17 03:27 O2 Sat by Pulse Oximetry (%) 98 06/26/17 21:00 Constitutional: Yes: No Distress, Calm Neck: Yes: Supple Respiratory: Yes: Regular, CTA Bilaterally Gastrointestinal: Yes: Normal Bowel Sounds, Soft Cardiovascular: Yes: Regular Rate and Rhythm JVD: No Carotid Bruit: No Heart Sounds: Yes: S1, S2 Edema: No - Other Data Labs, Other Data: CBC, BMP 06/25/17 07:52 06/27/17 06:25 Troponin, BNP 06/26/17 06/26/17 06/27/17 15:30 19:15 03:40 Troponin I 0.18 H 0.31 H D 0.21 H D Troponin, BNP 06/26/17 06/26/17 06/27/17 15:30 19:15 03:40 Troponin I 0.18 H 0.31 H D 0.[address] @ 121 LAE, RBBB c/w previous showing NSR @ 83 PAUL, LVH Tele: sinus tachycardia Ejection Fraction %: LVEF > or = 40 % Imaging - Results Cat Scan: Report Reviewed (HCT: SVID) Problem List - Problems (1) [id number] kidney injury Code(s): N17.9 - ACUTE KIDNEY FAILURE, UNSPECIFIED; N18.9 - CHRONIC KIDNEY DISEASE, UNSPECIFIED Qualifiers: Chronic kidney disease stage: stage 2 (mild) (2) Demand ischemia Code(s): I24.8 - OTHER FORMS OF ACUTE ISCHEMIC HEART DISEASE (3) HTN (hypertension) Code(s): I10 - ESSENTIAL (PRIMARY) HYPERTENSION Qualifiers: Hypertension type: essential hypertension Qualified Code(s): I10 - Essential (primary) hypertension (4) Hyperglycemia Code(s): R73.9 - HYPERGLYCEMIA, UNSPECIFIED (5) Hyperosmolar syndrome Code(s): E87.0 - HYPEROSMOLALITY AND HYPERNATREMIA (6) Syncope Code(s): R55 - SYNCOPE AND COLLAPSE Qualifiers: Syncope type: vasovagal syncope Qualified Code(s): R55 - Syncope and collapse Assessment/Plan 1. Syncope with typical prodrome likely vasovagal, do not suspect PE 2. HTN 3. Previous HHNK 4. Acute on CKD improving 5. Demand ischemia referable to HHNK resolving 6. Hyperuricemia P:1. Volume repletion, check orthostasis, telemetry without events thus far, trops have peaked 2. Echocardiogram to assess ventricular & valve fxn, diabetic cardiomyopathy 3. Ideally should be placed on ZAIDA-I/ARB for renovascular protection once renal fxn stabilizes, currently on ASA 81 qd, lopressor 25 bid and Procardia XL 60 qd. 4. Ischemic work-up as outpatient once clinically improved 5. DVT prophylaxis, thank you for consultative opportunity
[2017-06-27] MEDS: SODIUM CHLORIDE 0.45% 1,000 ML IV SCH ×2 (11:00→22:32)
[2017-06-27] MEDS ORDERED: INSULIN (NOVOLOG) ASPART 100 UNITS/ML 10ML VIAL ONE (11:38)
--- NOTE | 2017-06-27 13:13 | PN ---
Progress Note (short form) - Note Progress Note: Denies any complaints Blood sugar improivng No Hypos Vital Signs Period Temp Pulse Resp BP Sys/Thakkar Pulse Ox Last 24 Hr 97.7 F-98.8 F 78-130 18-20 112-158/69-118 98 PE; AOx3 Neck: Supple, No JVD, HEENT; PERRL, EOMI Lungs: CTA CVS: S1S2 Abd: Benign Ext: No edema Neuro: No focal deficit CMP Sodium 140 mmol/L (136-145) 06/27/17 06:25 Potassium 3.9 mmol/L (3.5-5.1) 06/27/17 06:25 Chloride 106 mmol/L (98-107) 06/27/17 06:25 Carbon Dioxide 27 mmol/L (21-32) 06/27/17 06:25 Anion Gap 7 (8-16) L 06/27/17 06:25 BUN 29 mg/dL (7-18) H 06/27/17 06:25 Creatinine 1.7 mg/dL (0.7-1.3) H 06/27/17 06:25 Creat Clearance w eGFR 39.28 (>60) 06/27/17 06:25 POC Glucometer 223 UNITS (80-120) 06/27/17 11:36 Random Glucose 159 mg/dL (74-106) H 06/27/17 06:25 Hemoglobin A1c % 12.7 % (4.8-6.0) H 06/25/17 06:00 Calcium 8.3 mg/dL (8.5-10.1) L 06/27/17 06:25 Phosphorus 2.9 mg/dL (2.5-4.9) 06/27/17 06:25 Magnesium 1.9 mg/dL (1.8-2.4) D 06/27/17 06:25 Total Bilirubin 0.3 mg/dL (0.2-1.0) D 06/27/17 06:25 AST 23 U/L (15-37) 06/27/17 06:25 ALT 39 U/L (12-78) 06/27/17 06:25 Alkaline Phosphatase 70 U/L (45-117) 06/27/17 06:25 Creatine Kinase 213 IU/L (39-308) 06/27/17 03:40 Creatine Kinase Index 1.2 % (0.0-5.0) 06/27/17 03:40 CK-MB (CK-2) 2.638 ng/mL (0.5-3.6) 06/27/17 03:40 Troponin I 0.21 ng/ml (0.00-0.05) H D 06/27/17 03:40 Total Protein 6.1 g/dl (6.4-8.2) L 06/27/17 06:25 Albumin 2.9 g/dl (3.4-5.0) L 06/27/17 06:25 TSH Cancelled 06/27/17 10:15 Free T4 Cancelled 06/27/17 10:15 Current Medications Generic Name Dose Route Start Last Admin Trade Name Freq PRN Reason Stop Dose Admin Aspirin 81 mg 06/26/17 17:30 06/27/17 09:00 Asa - PO 81 mg DAILY MACKENZIE Administration Dutasteride 0.5 mg 06/25/17 10:00 06/27/17 09:00 Avodart - PO 0.5 mg DAILY MACKENZIE Administration Heparin Sodium (Porcine) 5,000 unit 06/24/17 22:00 06/27/17 09:00 Heparin - SQ 5,000 unit BID MACKENZIE Administration Sodium Chloride 1,000 mls @ 125 mls/hr 06/27/17 10:01 06/27/17 11:00 1/2 Normal Saline IV 125 mls/hr ASDIR MACKENZIE Administration Insulin Aspart 1 vial 06/25/17 22:00 06/26/17 21:23 Novolog Vial Sliding Scale - SQ 6 units HS MACKENZIE Administration Protocol Insulin Aspart 1 vial 06/26/17 16:30 06/27/17 11:30 Novolog Vial Sliding Scale - SQ 8 units TIDAC MACKENZIE Administration Protocol Insulin Detemir 28 units 06/26/17 22:00 06/26/17 21:23 Levemir Vial SQ 28 units HS MACKENZIE Administration Metoprolol Tartrate 25 mg 06/26/17 22:00 06/27/17 09:00 Lopressor - PO 25 mg BID MACKENZIE Administration Metoprolol Tartrate 5 mg 06/26/17 19:35 Lopressor Injection - IVPUSH Q4H PRN HYPERTENSION Nifedipine 60 mg 06/25/17 10:00 06/27/17 09:00 Procardia Xl - PO 60 mg DAILY MACKENZIE Administration AP; Dizziness s/p Fall: Cardiology consult noted HHS Uncontrolled DM: Renal Insufficiency Calculated S OSM 341 IV hydration Electrolyte replacement as necessary Increase Levemir 32 units at HS daily BGM Q ACHS Increase Novolog SS kanu NEVAREZ Hold Janumet for now Will f/u
[2017-06-27] MEDS ORDERED: INSULIN (LEVEMIR) 100 UNITS/ML UNITS SQ SCH (22:00)
[2017-06-28] MEDS: INSULIN SLIDING SCALE (NOVOLOG) 1 VIAL SQ SCH (06:28)
[2017-06-28 08:21] LABS: ALBUMIN 2.7 g/dl (3.4-5.0); ANION GAP 5 (8-16); BLOOD UREA NITROGEN 26 mg/dL (7-18); CALCIUM 8.3 mg/dL (8.5-10.1); CHLORIDE 107 mmol/L (98-107); CO2 28 mmol/L (21-32); GLUCOSE,RANDOM 187 mg/dL (74-106); POTASSIUM 4.6 mmol/L (3.5-5.1); SODIUM 140 mmol/L (136-145)
[2017-06-28 08:26] LABS: ALK PHOS 63 U/L (45-117); BILIRUBIN,TOTAL 0.3 mg/dL (0.2-1.0); CREATININE 1.6 mg/dL (0.7-1.3); SGOT/AST 25 U/L (15-37); SGPT/ALT 40 U/L (12-78); TOT PROT 5.6 g/dl (6.4-8.2)
[2017-06-28] MEDS ORDERED: PT OWN MED DRAWER 7, Y5N ONE (08:56)
[2017-06-28] MEDS: DUTASTERIDE 0.5 MG CAP (FP) PO SCH (09:19)
[2017-06-28] MEDS: NIFEdipine E.R 60 MG TABLET (UD) PO SCH (09:19)
[2017-06-28] MEDS: HEPARIN NA (PORCINE) 5,000 UNITS/ML 1ML VIAL SQ SCH (09:19)
[2017-06-28] MEDS: ASPIRIN 81 MG CHEWABLE TABLETS PO SCH (09:19)
[2017-06-28] MEDS: METOPROLOL TARTRATE 25 MG TABLET (FP) PO SCH (09:19)
--- NOTE | 2017-06-28 09:41 | PN ---
Progress Note (short form) - Note Progress Note: Denies any complaints Blood sugar improivng, but still 200s No Hypos Vital Signs Period Temp Pulse Resp BP Sys/Thakkar Pulse Ox Last 24 Hr 98 F-98.9 F 71-89 18-20 125-139/76-93 98-100 PE; AOx3 Neck: Supple, No JVD, HEENT; PERRL, EOMI Lungs: CTA CVS: S1S2 Abd: Benign Ext: No edema Neuro: No focal deficit CMP Sodium 140 mmol/L (136-145) 06/28/17 06:00 Potassium 4.6 mmol/L (3.5-5.1) 06/28/17 06:00 Chloride 107 mmol/L (98-107) 06/28/17 06:00 Carbon Dioxide 28 mmol/L (21-32) 06/28/17 06:00 Anion Gap 5 (8-16) L 06/28/17 06:00 BUN 26 mg/dL (7-18) H 06/28/17 06:00 Creatinine 1.6 mg/dL (0.7-1.3) H 06/28/17 06:00 Creat Clearance w eGFR 42.01 (>60) 06/28/17 06:00 POC Glucometer 221 UNITS (80-120) 06/28/17 05:08 Random Glucose 187 mg/dL (74-106) H 06/28/17 06:00 Hemoglobin A1c % 12.7 % (4.8-6.0) H 06/25/17 06:00 Calcium 8.3 mg/dL (8.5-10.1) L 06/28/17 06:00 Phosphorus 2.9 mg/dL (2.5-4.9) 06/27/17 06:25 Magnesium 1.9 mg/dL (1.8-2.4) D 06/27/17 06:25 Total Bilirubin 0.3 mg/dL (0.2-1.0) 06/28/17 06:00 AST 25 U/L (15-37) 06/28/17 06:00 ALT 40 U/L (12-78) 06/28/17 06:00 Alkaline Phosphatase 63 U/L (45-117) 06/28/17 06:00 Creatine Kinase 213 IU/L (39-308) 06/27/17 03:40 Creatine Kinase Index 1.2 % (0.0-5.0) 06/27/17 03:40 CK-MB (CK-2) 2.638 ng/mL (0.5-3.6) 06/27/17 03:40 Troponin I 0.21 ng/ml (0.00-0.05) H D 06/27/17 03:40 Total Protein 5.6 g/dl (6.4-8.2) L 06/28/17 06:00 Albumin 2.7 g/dl (3.4-5.0) L 06/28/17 06:00 TSH Cancelled 06/27/17 10:15 Free T4 Cancelled 06/27/17 10:15 Current Medications Generic Name Dose Route Start Last Admin Trade Name Freq PRN Reason Stop Dose Admin Aspirin 81 mg 06/26/17 17:30 06/28/17 09:19 Asa - PO 81 mg DAILY MACKENZIE Administration Dutasteride 0.5 mg 06/25/17 10:00 06/28/17 09:19 Avodart - PO 0.5 mg DAILY MACKENZIE Administration Heparin Sodium (Porcine) 5,000 unit 06/24/17 22:00 06/28/17 09:19 Heparin - SQ 5,000 unit BID MACKENZIE Administration Sodium Chloride 1,000 mls @ 125 mls/hr 06/27/17 10:01 06/27/17 22:32 1/2 Normal Saline IV 125 mls/hr ASDIR MACKENZIE Administration Insulin Aspart 1 vial 06/25/17 22:00 06/27/17 22:25 Novolog Vial Sliding Scale - SQ 4 units HS MACKENZIE Administration Protocol Insulin Aspart 1 vial 06/27/17 13:14 06/28/17 06:28 Novolog Vial Sliding Scale - SQ 10 units TIDAC MACKENZIE Administration Protocol Insulin Detemir 32 units 06/27/17 22:00 06/27/17 22:26 Levemir Vial SQ 32 units HS MACKENZIE Administration Metoprolol Tartrate 25 mg 06/26/17 22:00 06/28/17 09:19 Lopressor - PO 25 mg BID MACKENZIE Administration Metoprolol Tartrate 5 mg 06/26/17 19:35 Lopressor Injection - IVPUSH Q4H PRN HYPERTENSION Nifedipine 60 mg 06/25/17 10:00 06/28/17 09:19 Procardia Xl - PO 60 mg DAILY MACKENZIE Administration AP; Dizziness s/p Fall: Cardiology consult noted HHS Uncontrolled DM: Renal Insufficiency Calculated S OSM 341 IV hydration Electrolyte replacement as necessary Increase Levemir 36 units at HS daily BGM Q ACHS Increase Novolog SS kanu NEVAREZ Hold Janumet for now Will f/u
[2017-06-28] MEDS ORDERED: INSULIN SLIDING SCALE (NOVOLOG) 1 VIAL SQ SCH (09:42)
[2017-06-28 09:55] VITALS: BP 163/91; PULSE 70; TEMP 98.4
--- NOTE | 2017-06-28 10:46 | PN ---
Progress Note (short form) - Note Progress Note: Chief Complaint: Events noted, notes reviewed, denies any dizziness or lightheadedness, denies any chest pain or dyspnea History of Present Illness: Seen and examined on telemetry. Events noted, notes reviewed, denies any dizziness or lightheadedness, denies any chest pain or dyspnea Echocardiography revealed concentric LVH with normal LV size and function, LVEF 55-60%, moderate TR with RVSP 50-60 mmHg Medications: Current Medications Aspirin (Asa -) 81 mg PO DAILY [facility] Last Admin: 06/28/17 09:19 Dose: 81 mg Dutasteride (Avodart -) 0.5 mg PO DAILY [facility] Last Admin: 06/28/17 09:19 Dose: 0.5 mg Heparin Sodium (Porcine) (Heparin -) 5,000 unit SQ BID [facility] Last Admin: 06/28/17 09:19 Dose: 5,000 unit Sodium Chloride (1/2 Normal Saline) 1,000 mls @ 125 mls/hr IV ASDIR [facility] Last Admin: 06/27/17 22:32 Dose: 125 mls/hr Insulin Aspart (Novolog Vial Sliding Scale -) 1 vial SQ HS [facility] PRN Reason: Protocol Last Admin: 06/27/17 22:25 Dose: 4 units Insulin Aspart (Novolog Vial Sliding Scale -) 1 vial SQ TIDAC [facility] PRN Reason: Protocol Insulin Detemir (Levemir Vial) 36 units SQ HS [facility] Metoprolol Tartrate (Lopressor -) 25 mg PO BID [facility] Last Admin: 06/28/17 09:19 Dose: 25 mg Metoprolol Tartrate (Lopressor Injection -) 5 mg IVPUSH Q4H PRN PRN Reason: HYPERTENSION Nifedipine (Procardia Xl -) 60 mg PO DAILY [facility] Last Admin: 06/28/17 09:19 Dose: 60 mg Review of Systems - Review of Systems Constitutional: denies: Chills, Fever Cardiovascular: As noted above Respiratory: denies: Cough or Sputum Production Gastrointestinal: denies: Nausea, Vomiting, Diarrhea, Constipation Or abdominal discomfort Neurological: No symptoms reported Vital Signs: Last Vital Signs Temp Pulse Resp BP Pulse Ox 98.4 F 70 20 163/91 98 06/28/17 09:00 06/28/17 09:00 06/28/17 09:00 06/28/17 09:00 06/28/17 09:00 Intake & Output 06/25/17 06/26/17 06/27/17 06/28/17 23:59 23:59 23:59 23:59 Intake Total 1700 1375 2790 200 Output Total 1200 1400 1200 Balance 500 -25 1590 200 Constitutional: No Distress, Calm Neck: SuppleNegative JVD No Bruit Cardiovascular: S1 S2 Regular Rate and Rhythm Respiratory: Clear to A&P Bilaterally Gastrointestinal: Soft Benign Normal Bowel Sounds Ext: No Edema Labs: CBC, BMP 06/25/17 07:52 06/28/17 06:00 Hepatic Panel Total Bilirubin 0.3 mg/dL (0.2-1.0) 06/28/17 06:00 AST 25 U/L (15-37) 06/28/17 06:00 ALT 40 U/L (12-78) 06/28/17 06:00 Alkaline Phosphatase 63 U/L (45-117) 06/28/17 06:00 Albumin 2.7 g/dl (3.4-5.0) L 06/28/17 06:00 Assessment/Plan ASSESSMENT: 1. Syncope with typical prodrome probably vasovagal 2. 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 Diastolic LV dysfunction with class 0 NYHA classification LV failure 4. HTN 5. Hyperglycemia 6. Acute on CKD improving PLAN: 1. Continue Lopressor and titrate dosage 2. Continue Procardia XL with caution 3. Ideally should be placed on ZAIDA-I/ARB for jayme-vascular protection once renal function stabilizes, recommend Diovan 80 mg daily 4. Continue ASA 5. Further cardiovascular evaluation including MPI study as outpatient once clinically improved Above was reviewed in detail with the patient Anna Heard MD
[2017-06-28] MEDS ORDERED: METOPROLOL TARTRATE 50 MG TABLET (FP) PO SCH (11:08)
--- NOTE | 2017-06-28 12:35 | DS ---
Physical Examination Vital Signs: Vital Signs Temperature 98.4 F 06/28/17 09:00 Pulse Rate 70 06/28/17 09:00 Respiratory Rate 20 06/28/17 09:00 Blood Pressure 163/91 06/28/17 09:00 O2 Sat by Pulse Oximetry (%) 98 06/28/17 09:00 Constitutional: Yes: No Distress, Calm Cardiovascular: Yes: Regular Rate and Rhythm Respiratory: Yes: CTA Bilaterally Gastrointestinal: Yes: Normal Bowel Sounds, Soft. No: Distention, Tenderness Edema: No Labs: CBC, BMP 06/25/17 07:52 06/28/17 06:00 Discharge Summary Reason For Visit: HYPERGLYCEMIA Current Active Problems Acute renal failure (Acute) [id number] kidney injury (Acute) Demand ischemia (Acute) HTN (hypertension) (Acute) Hyperglycemia (Acute) Hyperkalemia (Acute) Hyperosmolar syndrome (Acute) Syncope (Acute) Hospital Course: pt admitted for uncontrolled Condition: Fair - Instructions Referrals: Delmar Chavez MD., [Staff Physician] - Russ Baker MD [Staff Physician] - Mu Hagan MD [Staff Physician] - Disposition: HOME - Home Medications Comprehensive Discharge Medication List: Ambulatory Orders Allopurinol [Zyloprim -] 100 mg PO DAILY 05/15/17 Dutasteride 0.5 mg PO DAILY 05/15/17 Nifedipine ER [Procardia XL -] 60 mg PO DAILY 05/15/17 Cholecalciferol (Vitamin D3) [Vitamin D3] 1,000 unit PO DAILY 06/23/17 Insulin Detemir [Levemir Flextouch] 25 unit SQ HS #10 insuln.pen 06/26/17 Pen Needle, Diabetic [Pen Needle] 1 each SQ DAILY #90 dis.needle 06/26/17
[2017-06-28] MEDS ORDERED: INSULIN (NOVOLOG) ASPART 100 UNITS/ML 10ML VIAL ONE (12:50)
[2017-06-28] MEDS: SODIUM CHLORIDE 0.45% 1,000 ML IV SCH (12:58)
[2017-06-28] MEDS ORDERED: INSULIN (LEVEMIR) 100 UNITS/ML UNITS SQ SCH (22:00)
== END 2017-06-28 14:27 | disposition home or self-care (01) | DRG 637 ==
LOC: JER 12:52 → JERBED 15:22 → J5S 17:26 → J4W 06-26 15:53
PROVIDERS: ADMIT Internal Medicine; ATTEND Internal Medicine
DX: E11.65 Type 2 diabetes mellitus with hyperglycemia (principal); E11.00 Type 2 diabetes mellitus with hyperosmolarity without nonketotic hyperglycemic-hyperosmolar coma (NKHHC); E87.0 Hyperosmolality and hypernatremia; N17.9 Acute kidney failure, unspecified; I24.8 Other forms of acute ischemic heart disease; I25.110 Atherosclerotic heart disease of native coronary artery with unstable angina pectoris; N40.0 Benign prostatic hyperplasia without lower urinary tract symptoms; M10.9 Gout, unspecified; E87.5 Hyperkalemia; R42 Dizziness and giddiness; R00.0 Tachycardia, unspecified; I12.9 Hypertensive chronic kidney disease with stage 1 through stage 4 chronic kidney disease, or unspecified chronic kidney disease; E11.22 Type 2 diabetes mellitus with diabetic chronic kidney disease; N18.9 Chronic kidney disease, unspecified; I45.10 Unspecified right bundle-branch block; Z87.891 Personal history of nicotine dependence
CPT/HCPCS: 36415; 70450-TC; 72125-TC; 80048; 80053; 81003; 81015; 82009; 82550; 82553; 82803; 82947; 82962; 83036; 83735; 84100; 84132; 84439; 84443; 84484; 85025; 85027; 93005; 93010; 93306-TC; 99284-25; J1644; J7030

== ENCOUNTER 2020-09-19 04:37 | Day surgery (SDC) | payer OTHER, MEDICARE ==
[2020-09-18 10:28] VITALS: BMI 30.9
[2020-09-19] MEDS ORDERED: LIDOCAINE HCL/PF 2% SDV 5ML VIAL ONE (09:48)
[2020-09-19] MEDS ORDERED: PROPOFOL 20 ML ONE (09:48)
[2020-09-19] MEDS ORDERED: SODIUM CHLORIDE 0.9% P/F 10 ML VIAL IJ ONE (09:50)
[2020-09-19] MEDS ORDERED: KETOROLAC TROMETHAMINE 30 MG/1 ML VIAL ONE (09:50)
[2020-09-19] MEDS ORDERED: ceFAZolin SODIUM 1 GM VIAL ONE (09:50)
[2020-09-19] MEDS ORDERED: ceFAZolin SODIUM 1 GM VIAL IVPB ONE (10:22)
[2020-09-19 13:34] VITALS: BP 146/78; PULSE 64; TEMP 97.4
== END 2020-09-19 12:45 | disposition home or self-care (01) ==
LOC: JASU-SURG 04:37
PROVIDERS: ATTEND Urology
PROC: 0TF3XZZ Fragmentation in Right Kidney Pelvis, External Approach (ICD-10-PCS; principal; 2020-09-19 10:00)
DX: N20.0 Calculus of kidney (principal)
CPT/HCPCS: 82962